=== PATIENT | female | born 2000 | race Caucasian/White ===

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

== ENCOUNTER 2023-02-04 16:01 | Emergency (ER) | payer OTHER ==
[~2023-02-04] VITALS: Ht 162.6 cm; Wt 68.0 kg
[2023-02-04 16:52] VITALS: BP 132/74; TEMP 98.2; O2SAT 100
[2023-02-04] MEDS ORDERED: CYCLOBENZAPRINE 10 MG TABLET PO ONE (17:30)
[2023-02-04] MEDS ORDERED: KETOROLAC TROMETHAMINE 15 MG/ML VIAL IM ONE (17:30)
[2023-02-04] MEDS ORDERED: KETOROLAC TROMETHAMINE 15 MG/ML VIAL ONE (17:46)
[2023-02-04] MEDS ORDERED: CYCLOBENZAPRINE 10 MG TABLET ONE (17:47)
[2023-02-04] MEDS ORDERED: CYCL5TAB PO (18:20)
[2023-02-04] MEDS ORDERED: IBUP-1957 PO (18:20)
== END 2023-02-04 18:31 | disposition home or self-care (01) ==
LOC: ER 16:06
DX: M54.6 Pain in thoracic spine (principal); M25.511 Pain in right shoulder; Z79.899 Other long term (current) drug therapy
CPT/HCPCS: 99283; 96372; J1885